=== PATIENT | female | born 1960 | race Caucasian/White ===

== ENCOUNTER 2018-08-13 08:39 | Inpatient (IN) | payer OTHER ==
[2018-08-13] MEDS ORDERED: CEFAZOLIN 1 GM INJ (09:24)
[2018-08-13] MEDS ORDERED: ROPIVACAINE 0.5 % 30 ML VIAL (09:24)
[2018-08-13] MEDS ORDERED: FENTAnyl 50 MCG/ML VIAL (09:24)
[2018-08-13] MEDS ORDERED: PROPOFOL 20 ML (09:24)
[2018-08-13] MEDS ORDERED: ROCURONIUM 50 MG INJ (09:24)
[2018-08-13] MEDS ORDERED: MIDAZOLAM 1 MG/ML 2 ML INJ (09:24)
[2018-08-13] MEDS: LACTATED RINGER'S 1,000 ML IV (09:30)
[2018-08-13] MEDS ORDERED: DEXAMETHASONE 4 MG/ML 1 ML INJ ×2 (09:35→11:16)
[2018-08-13] MEDS ORDERED: ACETAMINOPHEN 500 MG TAB (09:35)
[2018-08-13] MEDS: ACETAMINOPHEN 500 MG TAB PO (09:36)
[2018-08-13] MEDS: DEXAMETHASONE 4 MG/ML 1 ML INJ IV (09:37)
[2018-08-13] MEDS ORDERED: BACITRACIN 50000 UNITS INJ (09:49)
[2018-08-13] MEDS ORDERED: POLYMYXIN B 500000 UNIT INJ (09:55)
[2018-08-13] MEDS ORDERED: ACETAMINOPHEN 500 MG TAB PO ×2 (10:00→13:00)
[2018-08-13] MEDS ORDERED: CLINDAMYCIN 600 MG/D5W (PMX) 50 ML IVPB (10:00)
[2018-08-13] MEDS: TRANEXAMIC ACID 1,000 MG in SOD CHLORIDE 0.9% 100 ML IVPB ×2 (10:28→12:28)
[2018-08-13] MEDS ORDERED: ONDANSETRON 4 MG INJ (11:16)
[2018-08-13] MEDS ORDERED: METOCLOPRAMIDE 10 MG INJ (11:16)
[2018-08-13] MEDS ORDERED: FAMOTIDINE 20 MG INJ (11:17)
[2018-08-13] MEDS ORDERED: oxyCODONE 5 MG TAB PO ×2 (11:30)
[2018-08-13] MEDS ORDERED: SENNA/DOCUSATE NA (8.6MG/50MG) TAB PO (11:30)
[2018-08-13] MEDS ORDERED: DIPHENHYDRAMINE 50 MG INJ IV ×3 (11:30→13:00)
[2018-08-13] MEDS ORDERED: BETHANECHOL 25 MG TAB PO (11:30)
[2018-08-13] MEDS ORDERED: NACL 0.9% 3 ML SYG IV (11:30)
[2018-08-13] MEDS ORDERED: NA PHOSPHATE/BIPHOS 133 ML ENEMA PR (11:30)
[2018-08-13] MEDS ORDERED: MAGNESIUM HYDROXIDE 30ML CUP PO (11:30)
[2018-08-13] MEDS ORDERED: NALOXONE (0.4 MG/ML) INJ IV ×2 (11:30→13:00)
[2018-08-13] MEDS ORDERED: BISACODYL 10 MG SUPP PR (11:30)
[2018-08-13] MEDS: POLYMYXIN B 500000 UNIT INJ IRR (11:55)
[2018-08-13] MEDS: BACITRACIN 50000 UNITS INJ IRR (11:55)
[2018-08-13] MEDS ORDERED: NEOSTIGMINE 3 MG/3 ML SYRINGE (12:30)
[2018-08-13] MEDS ORDERED: GLYCOPYRROLATE 0.4 MG INJ (12:30)
[2018-08-13] MEDS ORDERED: NALBUPHINE HCL (10 MG/1 ML) INJ IV (13:00)
[2018-08-13] MEDS ORDERED: OXYCODONE/ACETAMINOPHEN (5/325) TAB PO ×2 (13:00)
[2018-08-13] MEDS ORDERED: METOCLOPRAMIDE 10 MG INJ IV (13:00)
[2018-08-13] MEDS ORDERED: LABETALOL HCL 20MG INJ IV (13:00)
[2018-08-13] MEDS ORDERED: HYDROCODONE/APAP (5/325) TAB PO (13:00)
[2018-08-13] MEDS ORDERED: ONDANSETRON 4 MG INJ IV ×2 (13:00)
[2018-08-13] MEDS ORDERED: HYDROmorphONE 1 MG/5 ML IV SYRINGE IV ×2 (13:00)
[2018-08-13] MEDS ORDERED: FENTAnyl 50 MCG/ML VIAL IV ×2 (13:00)
[2018-08-13] MEDS ORDERED: morphine 2 MG INJ IV ×2 (13:00)
[2018-08-13] MEDS ORDERED: HYDROmorphONE 0.5 MG/0.5 ML SYG IV ×2 (13:00)
[2018-08-13] MEDS ORDERED: EPHEDrine SULFATE 50 MG/5 ML SYG IV (13:00)
[2018-08-13] MEDS ORDERED: MEPERIDINE 25 MG INJ IV (13:00)
[2018-08-13] MEDS ORDERED: hydrALAzine 20 MG INJ IV (13:00)
[2018-08-13] MEDS: DOCUSATE SODIUM 100 MG CAP PO (13:07)
[2018-08-13] MEDS: ONDANSETRON 4 MG INJ IV ×3 (13:07→23:30)
[2018-08-13] MEDS: ASPIRIN (EC) 325 MG TAB PO (13:07)
[2018-08-13] MEDS: GABAPENTIN 100 MG CAP PO ×2 (14:49→20:25)
[2018-08-13] MEDS: SOD CHLORIDE 0.9% 1,000 ML IV (14:49)
[2018-08-13] MEDS: VANCOMYCIN 1 GM (PMX) 250 ML IVPB (17:13)
[2018-08-13] MEDS: oxyCODONE 5 MG TAB PO (20:28)
[2018-08-14] MEDS: oxyCODONE 5 MG TAB PO ×4 (01:56→13:29)
[2018-08-14] MEDS: ONDANSETRON 4 MG INJ IV (05:30)
[2018-08-14] MEDS: PANTOPRAZOLE (EC) 40 MG TAB PO (05:44)
[2018-08-14] MEDS: VANCOMYCIN 1 GM (PMX) 250 ML IVPB (05:44)
[2018-08-14 06:06] LABS: ADD MAN DIFF? NO
[2018-08-14 06:14] LABS: WHITE BLOOD COUNT 13.5 10^3/ul (4.8-10.8)
[2018-08-14 06:14] LABS: BASOPHILS % 0.1 % (0.0-2.0); HEMATOCRIT 33.9 % (37.0-47.0); HEMOGLOBIN 11.8 g/dl (12.0-16.0); LYMPHOCYTES # 1.1 10^3/ul (0.8-2.9); LYMPHOCYTES % 8.2 % (15.0-51.0); MEAN CORPUSCULAR HEMOGLOBIN 34.5 pg (29.0-33.0); MEAN CORPUSCULAR HGB CONC 34.8 g/dl (32.0-37.0); MEAN CORPUSCULAR VOLUME 99.1 fl (82.0-101.0); MEAN PLATELET VOLUME 10.2 fl (7.4-10.4); MONOCYTE # 0.8 10^3/ul (0.3-0.9); MONOCYTES % 5.6 % (0.0-11.0); NEUTROPHIL # 11.5 10^3/ul (1.6-7.5); NEUTROPHILS % 85.5 % (39.0-77.0); PLATELET COUNT 229 10^3/UL (140-415); RED BLOOD COUNT 3.42 10^6/ul (4.20-5.40); RED CELL DISTRIBUTION WIDTH 11.6 % (11.5-14.5)
[2018-08-14 06:58] LABS: ANION GAP 10 (5-13); BLOOD UREA NITROGEN 12 mg/dl (7-20); CALCIUM 8.6 mg/dl (8.4-10.2); CARBON DIOXIDE 24 mmol/L (21-31); CHLORIDE 108 mmol/L (97-110); CREATININE 0.58 mg/dl (0.44-1.00); Estimated GFR > 60 mL/min (>60); GLUCOSE 112 mg/dl (70-220); POTASSIUM 4.1 mmol/L (3.5-5.1); SODIUM 142 mmol/L (135-144)
[2018-08-14] MEDS: FERROUS FUMARATE (SR) TAB PO (09:02)
[2018-08-14] MEDS: DOCUSATE SODIUM 100 MG CAP PO (09:02)
[2018-08-14] MEDS: CELECOXIB 200 MG CAP PO (09:02)
[2018-08-14] MEDS: ASPIRIN (EC) 325 MG TAB PO (09:03)
[2018-08-14] MEDS: GABAPENTIN 100 MG CAP PO ×2 (09:03→13:28)
== END 2018-08-14 16:00 | disposition home health service (06) | DRG 470 ==
LOC: REC 08:39 → MS1 13:37
PROC: 0SRB04A Replacement of Left Hip Joint with Ceramic on Polyethylene Synthetic Substitute, Uncemented, Open Approach (ICD-10-PCS; principal; 2018-08-13 10:00)
DX: M16.12 Unilateral primary osteoarthritis, left hip (principal); R20.0 Anesthesia of skin
CPT/HCPCS: 73530; 80048; 85025; 86850; 86900; 86901; 87081; 88304; 88311; 97110; 97116; 97162; 97167; 97530